=== PATIENT | female | born 1975 | race Hispanic/Latino ===

== ENCOUNTER 2019-08-28 01:05 | Emergency (ER) | payer MEDICAID, OTHER | END 2019-08-28 01:30 | LOC: EDH 01:05 | DX: Z02.83 Encounter for blood-alcohol and blood-drug test (principal) ==

== ENCOUNTER 2019-12-20 23:11 | Inpatient (IN) | payer SELFPAY ==
[~2019-12-20] VITALS: Ht 160 cm; Wt 96.0 kg
[2019-12-20] MEDS ORDERED: ONDANSETRON HCL 4 MG/2 ML VIAL ONE (23:30)
[2019-12-20] MEDS ORDERED: MORPHINE SULFATE 4 MG/1ML SYG ONE (23:31)
[2019-12-20 23:38] LABS: EOSINOPHILS % (AUTO) 4.1 % (0.0-8.0); HEMATOCRIT 34.5 % (36-48); LYMPHOCYTES % (AUTO) 25.6 % (21.0-51.0); MEAN CORPUSCULAR HEMOGLOBIN 23.9 pg (27.0-33.0); MEAN CORPUSCULAR HGB CONC 30.1 g/dL (32.0-36.0); MEAN CORPUSCULAR VOLUME 79.1 fL (79-99); MONOCYTES % (AUTO) 10.3 % (3.0-13.0); NEUTROPHILS % (AUTO) 58.8 % (40.0-77.0); PLATELET COUNT (AUTO) 372 K/uL (130-400); RED BLOOD CELL COUNT(AUTO) 4.36 MIL/uL (4.00-5.50); RED CELL DISTRIBUTION WIDTH 16.5 % (11.0-15.5); WHITE BLOOD COUNT (AUTO) 9.2 K/uL (4.8-10.8)
[2019-12-20 23:48] LABS: CREATININE 1.2 mg/dL (0.5-1.5); POTASSIUM 4.1 mmol/L (3.5-5.1)
[2019-12-21 00:01] LABS: ALBUMIN 3.5 g/dL (3.5-5.0); BILIRUBIN,TOTAL 0.1 mg/dL (0.2-1.0); TOTAL PROTEIN, SERUM 7.2 g/dL (6.0-8.3)
[2019-12-21 00:49] LABS: APPEARANCE,URINE Cloudy (CLEAR); BILIRUBIN,URINE Negative (NEGATIVE); COLOR,URINE Yellow (YELLOW); GLUCOSE, URINE (UA) Negative (NEGATIVE); KETONES,URINE Negative (NEGATIVE); LEUKOCYTE ESTERASE ,URINE Negative (NEGATIVE); NITRATE,URINE Negative (NEGATIVE); OCCULT BLOOD,URINE Negative (NEGATIVE); PH,URINE 7.5 (5.0-8.0); PROTEIN,URINE Negative (NEGATIVE)
[2019-12-21] MEDS ORDERED: MORPHINE SULFATE 4 MG/1ML SYG ONE (00:49)
[2019-12-21 01:10] LABS: HCG,QUAL RESULT NEGATIVE (NEGATIVE)
[2019-12-21] MEDS ORDERED: LORAZEPAM 2 MG/ML 1 ML VIAL ONE (03:12)
[2019-12-21 05:10] VITALS: BP 135/64
[2019-12-21] MEDS ORDERED: HYDROMORPHONE HCL 0.5 MG/0.5 ML ML ONE (05:47)
[2019-12-21] MEDS: ONDANSETRON HCL 4 MG/2 ML VIAL IVP PRN (05:52)
[2019-12-21] MEDS: SODIUM CHLORIDE 0.9% 1000ML 1,000 ML IV SCH ×2 (05:53→13:45)
[2019-12-21] MEDS ORDERED: ZOLP10TA2 PO (07:43)
[2019-12-21] MEDS ORDERED: AMPH30TA3 PO (07:43)
[2019-12-21 08:23] VITALS: BP 127/88
[2019-12-21] MEDS: PANTOPRAZOLE 40 MG/VIAL IVP SCH (08:48)
--- NOTE | 2019-12-21 09:18 | NUR ---
MD ROUNDS DR. MCCOY ROUNDED, SPOKE TO PATIENT REGARDING ABD CT SCAN. STATED TO DISCONTINUE NGT AND START CLEAR LIQUIDS. STATED MAY BE DISCHARGED FROM HIS STAND POINT.
[2019-12-21 11:52] VITALS: BP 92/48
[2019-12-21 16:00] VITALS: BP 101/56
[2019-12-21 16:43] LABS: AMPHET/METH SCREEN,URINE NEGATIVE (NEGATIVE); BARBITURATE SCREEN, URINE NEGATIVE (NEGATIVE); BENZODIAZEPINES SCREEN,URINE POSITIVE (NEGATIVE); CANNABINOID SCREEN,URINE POSITIVE (NEGATIVE); COCAINE SCREEN,URINE POSITIVE (NEGATIVE); OPIATE SCREEN,URINE POSITIVE (NEGATIVE); PHENCYCLIDINE SCREEN,URINE NEGATIVE (NEGATIVE)
--- NOTE | 2019-12-21 17:15 | NUR ---
INITIAL: Met with pt this afternoon to discuss dcp. Pt mentions that prior to admission she was independent w ambulation and ADLs. She lives alone. SHe does not own any DME or receive services. Per pt she feels safe and comfortable to return home at [place]. Low income packet provided. CM to continue to follow and wait for Md recommendations. Addendum: 12/21/19 at 1716 by EDGARDO OBRIEN Amended: Links added.
[2019-12-21 19:59] VITALS: BP 111/63
--- NOTE | 2019-12-21 20:45 | NUR ---
PATIENT VOICED ABDOMINAL DISCOMFORT, ABDOMEN NOTED WITH SOME DISTENTION, REPORTS ONLY SMALL AMOUNTS OF FLATUS, AUSCULTATED HYPOACTIVE BOWEL SOUNDS. PATIENT REPORTED DIARRHEA DURING DAY SHIFT AND HAS BEEN SEEN DRINKING COUPLE OF REGULAR COFFEE CUPS DURING THIS SHIFT. SHE WAS ENCOURAGED NOT TO DRINK TOO MUCH COFFEE TO AVOID UPSET STOMACH TO BE ABLE TO TOLERATE HER DIET, ADVANCE HER DIET TOMORROW AND BE ABLE TO GO HOME. SHE INSISTED ON DRINKING THE COFFEE, BUT AGREED TO WALK AROUND NURSE'S STATION X1. WILL CONTINUE TO MONITOR.
--- NOTE | 2019-12-21 21:15 | NUR ---
CALLED DR FREED TO INFORM PATIENT SPECIFICALLY REQUESTING BENADRYL 75MG SHE CLAIMS SHE WAS UNABLE TO SLEEP LAST NIGHT. NOTE: HAS HAD MULTIPLE CUPS OF COFFEE ON THIS SHIFT ALREADY. ALSO ASKED FOR 1-5 PAIN MEDICATION SHE ONLY HAS DILAUDID PRN 6-10 PAIN SCALE. NEW ORDERS GIVEN FOR AMBIEN 5MG X1 DOSE AND TYLENOL PRN, REFER TO DOCTOR'S ORDERS. HOWEVER, PATIENT REFUSED AMBIEN SHE STATES SHE DOES NOT WANT TO TAKE MEDICATIONS WHICH HAVE THE POTENTIAL TO CAUSE DEPENDENCE. NOTE: AMBIEN NOTED A HOME MEDICATION. SHE ALSO REFUSED THE TYLENOL. WILL CONTINUE TO MONITOR.
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
[2019-12-21] MEDS ORDERED: ZOLPIDEM TARTRATE 5 MG TAB PO ONE (22:45)
[2019-12-21] MEDS ORDERED: ACETAMINOPHEN 325 MG TAB PO PRN (22:45)
[2019-12-22] VITALS: BP 134/85
[2019-12-22] MEDS: ONDANSETRON HCL 4 MG/2 ML VIAL IVP PRN ×2 (00:02→14:12)
[2019-12-22] MEDS: HYDROMORPHONE HCL 0.5 MG/0.5 ML ML IVP PRN ×2 (00:08→14:12)
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
[2019-12-22 04:00] VITALS: BP 105/56
[2019-12-22 05:57] LABS: HEMATOCRIT 30.4 % (36-48); MEAN CORPUSCULAR HEMOGLOBIN 23.8 pg (27.0-33.0); MEAN CORPUSCULAR HGB CONC 30.3 g/dL (32.0-36.0); MEAN CORPUSCULAR VOLUME 78.8 fL (79-99); PLATELET COUNT (AUTO) 285 K/uL (130-400); RED BLOOD CELL COUNT(AUTO) 3.86 MIL/uL (4.00-5.50); RED CELL DISTRIBUTION WIDTH 15.9 % (11.0-15.5); WHITE BLOOD COUNT (AUTO) 9.4 K/uL (4.8-10.8)
[2019-12-22 06:13] LABS: % IRON SATURATION 3.9 % (22-44)
[2019-12-22 06:24] LABS: CREATININE 0.8 mg/dL (0.5-1.5); POTASSIUM 3.9 mmol/L (3.5-5.1)
--- NOTE | 2019-12-22 07:30 | NUR ---
REQUESTING CHARGE NURSE AND PATIENT ADVOCATE states she has requeted patient advocate since yesterday ,told her would notify as soon as possible .she asks what time do does the pt advocate come to work ?unsure of certain time but will let them know ,pt states well I was requesting patient advocate since yesterday for breach of confidentiality told pt we do not have patient advocate on Weekends ..patient states you should have on [employer] because this is a big deal someone posted on social media ..I dont know why the hospital does not have them This is a big deal .I told pt well I dont make the rules .She states you dont have to be so condescending .Explained to pt did not mean to be condescending will call as soon as possible.
[2019-12-22 07:35] LABS: BASOPHILS % (MANUAL) 1 % (0-2); EOSINOPHILS % (MANUAL) 1 % (1-6); LYMPHOCYTES % (MANUAL) 42 % (22-44); MAN.DIFF COMMENT-IMPRESSION MANUAL DIFFERENTIAL; MONOCYTES % (MANUAL) 5 % (2-9); PLATELET MORPHOLOGY COMMENT ADEQUATE; SEGMENTED NEUTROPHILS % 51 % (40-70)
--- NOTE | 2019-12-22 07:35 | NUR ---
REPORT GIVEN TO INCOMING DAY SHIFT NURSE. WALKED IN TO PATIENT'S ROOM, DENIES N/V, BUT DENIES PASSING GAS, AGAIN OFFERED, BUT SHE REFUSED TO GO FOR A WALK. SHE ASKED WHAT TIME THE PATIENT ADVOCATE COMES IN. SHE WAS INFORMED PATIENT ADVOCATE WILL BE CALLED TODAY, BUT DO NOT KNOW WHAT TIME SHE WILL COME IN. BECAME UPSET THERE IS NO PATIENT ADVOCATE DURING THE WEEKEND.
[2019-12-22 08:09] VITALS: BP 118/73
[2019-12-22] MEDS ORDERED: LACTULOSE 20 GM/30 ML UDCUP PO PRN (08:15)
[2019-12-22] MEDS: PANTOPRAZOLE 40 MG/VIAL IVP SCH (09:00)
[2019-12-22] MEDS ORDERED: LACTULOSE 20 GM/30 ML UDCUP PO SCH (09:30)
--- NOTE | 2019-12-22 11:01 | NUR ---
RESTART IV iv restarted in left forearm x 1 attempt tolerated well
--- NOTE | 2019-12-22 11:45 | NUR ---
PT STATES SHE IS LEAVING WAITING ON A RIDE took patient AMA form states I am not signing an ama form ,took paper out came back to DC iv ,states you are not touching me walked out of room and called charge nurse Doug reaves RN
--- NOTE | 2019-12-22 12:00 | NUR ---
REASSIGNMENT pt reassigned to another nurse
[2019-12-22 12:28] VITALS: BP 127/69
== END 2019-12-22 16:02 | disposition home or self-care (01) | DRG 390 ==
LOC: EDH 23:11 → EDHIP 23:12 → EEVIPCON 23:12 → 3BH 12-21 05:07
PROVIDERS: ADMIT Internal Medicine Nephrology; ATTEND Internal Medicine Nephrology
PROC: 0D9670Z Drainage of Stomach with Drainage Device, Via Natural or Artificial Opening (ICD-10-PCS; principal; 2019-12-20)
DX: K56.609 Unspecified intestinal obstruction, unspecified as to partial versus complete obstruction (principal); Z98.891 History of uterine scar from previous surgery; Z82.49 Family history of ischemic heart disease and other diseases of the circulatory system; Z83.3 Family history of diabetes mellitus; E86.9 Volume depletion, unspecified; I95.9 Hypotension, unspecified; D64.9 Anemia, unspecified
CPT/HCPCS: 36415; 74176; 76705; 80048; 80053; 80305; 81003; 81025; 83540; 83550; 83690; 85025; 93005; C9113; G0378; J1170; J2060; J2270; J2405; J7030